=== PATIENT | female | born 1985 | race Caucasian/White ===

== ENCOUNTER 2017-12-12 10:02 | Inpatient (IN) ==
[2017-12-12] MEDS ORDERED: CITRIC ACID/SODIUM CITRATE 30ml PO ONE (10:05)
[2017-12-12] MEDS ORDERED: GENTAMICIN PB 120 MG/100 ML BAG IV ONE (10:05)
[2017-12-12] MEDS ORDERED: CLINDAMYCIN PB 600 MG/50 ML BAG IV ONE (10:05)
[2017-12-12] MEDS ORDERED: FAMOTIDINE PB 20 MG/50 ML BAG IV ONE (10:05)
[2017-12-12] MEDS ORDERED: NOZIN NASAL SWAB NAS ONE ×2 (10:05)
[2017-12-12] MEDS: LR 1,000 ML IV SCH ×3 (10:25→20:48)
[2017-12-12 10:34] VITALS: BMI 31.1
[2017-12-12] MEDS ORDERED: SCOPOLAMINE 1mg/3 days PATCH (Eq. 1.5 Patch) TD ONE (10:50)
--- NOTE | 2017-12-12 10:56 | Anesthesia Preoperative Report ---
Anesthesia Preoperative Record - Date and Time Date: 12/12/17 Preoperative Diagnosis: Repeat C Section Allergies/Adverse Reactions: Allergies Allergy/AdvReac Type Severity Reaction Status Date / Time cephalexin Allergy Mild Hives Verified 12/12/17 10:21 - Vital Signs Height and Weight: Height 1.57 m Weight 77.4 kg Body Mass Index 31.1 - Medications Inpatient Medications: Current Medications Lactated Ringer's (Lactated Ringers) 1,000 mls @ 150 mls/hr IV .Q6H40M COUNT INCLUDES THE [facility] Isopropyl Alcohol (Nozin Nasal Swab) 1 each TRINH 0600,1400,2200 COUNT INCLUDES THE [facility] Home Medications: Home Medications Medication Instructions Recorded Confirmed Type Aspirin [Adult Low Dose Aspirin EC] 81 mg PO DAILY 05/21/17 12/12/17 History Vits #93/Iron Fum/FA 1 each PO DAILY 05/21/17 12/12/17 History [ Formula Tablet] Acetaminophen [Tylenol] 1,000 mg PO Q5H 12/12/17 12/12/17 History CALCIUM CARBONATE Chewable [Tums] 1,000 mg PO CHEW DAILY 12/12/17 12/12/17 History - Medical History Neuro/Musculoskeletal: Reports: Other (RA) Other History: Reports: Now ([facility] 12-18-17) - Surgical History HEENT Surgeries: Reports: Nose Surgery, Tonsillectomy Reproductive Surgery/Treatment: Reports: Section DENIES: Hysterectomy, Tubal Ligation - Social History Smoking Status: Former smoker Substance Use Type: does not use Alcohol Intake Frequency: does not drink - Discussion Discussion: Discussed risks/options/alternatives of anesthesia and questions answered. Patient consents. Nursing pain assessment noted. Attestation Statement: Prior to the delivery of any anesthetic medication, I examined the patient, developed the plan, obtained the patient's consent and discussed the risk and benefits of the procedure with the patient/guardian.
[2017-12-12] MEDS ORDERED: NALOXONE 2 MG/2 ML INJECTION PFS IVP PRN ×2 (11:00→14:36)
--- NOTE | 2017-12-12 11:00 | Anesthesia Preoperative Report ---
Anesthesia Preoperative Record - Date and Time Date: 12/12/17 Preoperative Diagnosis: Repeat C Section previous c section Proposed Procedure: repeat csection NPO Since Date: 12/11/17 NPO Since Time: 23:00 Allergies/Adverse Reactions: Allergies Allergy/AdvReac Type Severity Reaction Status Date / Time cephalexin Allergy Mild Hives Verified 12/12/17 10:21 - Vital Signs Vital Signs: Temperature 99.5 F 12/12/17 10:35 Pulse Rate 72 12/12/17 10:35 Respiratory Rate 18 12/12/17 10:35 Blood Pressure 121/80 12/12/17 10:35 Pulse Oximetry 98 12/12/17 10:35 Height and Weight: Height 1.57 m Weight 77.4 kg Body Mass Index 31.1 - Medications Inpatient Medications: Current Medications Lactated Ringer's (Lactated Ringers) 1,000 mls @ 150 mls/hr IV .Q6H40M TAMMIE Isopropyl Alcohol (Nozin Nasal Swab) 1 each TRINH 0600,1400,2200 [facility] Home Medications: Home Medications Medication Instructions Recorded Confirmed Type Aspirin [Adult Low Dose Aspirin EC] 81 mg PO DAILY 05/21/17 12/12/17 History Vits #93/Iron Fum/FA 1 each PO DAILY 05/21/17 12/12/17 History [ Formula Tablet] Acetaminophen [Tylenol] 1,000 mg PO Q5H 12/12/17 12/12/17 History CALCIUM CARBONATE Chewable [Tums] 1,000 mg PO CHEW DAILY 12/12/17 12/12/17 History Is Patient on Beta Gonsalo?: No - Medical History Neuro/Musculoskeletal: Reports: Other (RA) Other History: Reports: Now ([facility] 12-18-17) - Surgical History HEENT Surgeries: Reports: Nose Surgery, Tonsillectomy Reproductive Surgery/Treatment: Reports: Section DENIES: Hysterectomy, Tubal Ligation Anesthesia Reactions: Nausea and Vomiting - Social History Smoking Status: Former smoker Substance Use Type: does not use Alcohol Intake Frequency: does not drink - Physical Exam Respiratory Exam: Present: lungs clear, bilateral breath sounds equal Cardiovascular Exam: Present: regular rate and rhythm, no murmur - Airway Assessment Mallampati Score: II TMD: 3 Fingerbreadths Neck Extension: good Overall Assessment: no airway concerns - ASA ASA Score: 2 - Plan Regional/Trunk Block: Spinal - Discussion Discussion: Discussed risks/options/alternatives of anesthesia and questions answered. Patient consents. Nursing pain assessment noted. Attestation Statement: Prior to the delivery of any anesthetic medication, I examined the patient, developed the plan, obtained the patient's consent and discussed the risk and benefits of the procedure with the patient/guardian. - Additional Information Seen by Anesthesia: Yes
[2017-12-12] MEDS ORDERED: FentaNYL 100 MCG/2 ML INJECTION ONE ×2 (11:48→12:38)
[2017-12-12] MEDS ORDERED: MORPHINE SULFATE PF 5mg/10ml INJ (Duramorph) ONE (11:48)
[2017-12-12] MEDS ORDERED: EPHEDRINE 50mg/ml INJECTION ONE (11:49)
[2017-12-12] MEDS ORDERED: SALINE FLUSH 10ml SYRINGE ONE (11:49)
[2017-12-12] MEDS ORDERED: BUPIVACAINE 0.75%/DEXTROSE 8.5% SPINAL 2 ML AMPULE IJ ONE (11:54)
[2017-12-12] MEDS ORDERED: LIDOCAINE 2% (100mg/5mL) 5ml PF SDV ONE (11:54)
[2017-12-12] MEDS ORDERED: OXYTOCIN BOLUS BAG 30 UNIT/500 ML ML IV SCH (12:00)
--- OUTSIDE RECORDS SUMMARY | 2017-12-12 12:09 | External Medical Summary | Continuity of Care Document ---
:1985 Author Organization [facility] Address [address] [place], [place] [id number] Phone Care Team Providers Name Role Phone Herbert Lee MD Unavailable Unavailable Allergies, Adverse Reactions, Alerts Substance Reaction Severity Status cephalexin Hives Unknown Active Medications Medication Instructions Dosage Effective Dates Status Comments (start - stop) [place] 5 mg-325 mg take 1 tablets PO - Active tablet every 6 hours as needed for pain melatonin 3 mg tablet - Active ORAL TABLET - Active Aspir-81 81 mg take 1 tablet by oral 81 MG - Active tablet,delayed route every day release Problems Condition Effective Dates (start - stop) Clinical Status Opioid dependence, uncomplicated - Supervision of other high risk - pregnancies, second trimester Placenta previa specified as w/o - hemor, second trimester 27 weeks gestation of - Suprvsn of w grand multiparity, first trimester Less than 8 weeks gestation of - Hypokalemia - Encntr screen for infections w sexl - mode of transmiss Encounter for screening for oth - infec/parastc diseases Encounter for suprvsn of normal - , first trimester Encounter for screening of - mother 10 weeks gestation of - Opioid dependence, uncomplicated - Matern care for oth or susp poor fetl - grth, 2nd tri, unsp 14 weeks gestation of - Opioid dependence, uncomplicated - Placenta previa specified as w/o - hemor, second trimester 19 weeks gestation of - Essential (primary) hypertension Supervision of other high risk - pregnancies, second trimester 23 weeks gestation of - Supervision of other high risk - pregnancies, third trimester Previous Low Transverse - 30 weeks gestation of - Previous Low Transverse - Placenta previa specified as w/o - hemorrhage, third trimester 30 weeks gestation of - Previous Low Transverse - Matern care for oth or susp poor fetl - grth, 2nd tri, unsp 19 weeks gestation of - 21 weeks gestation of - Personal history of dis of the nervous - sys and sense organs Hypertension - Active GERD Active Depression Active Kidney Stones Active Migraines Active Irregular Bleeding Active Procedures Procedure Date OB Visit No Charge Automated hemogram (CBC) Glucose test Venpnctr fngr/heel/ear stick routne Results Test Name Date and Time Measure Units Reference Range Abnormal Flag Comments Panel Description: CBC With Differential/Platelet WBC 09:47:00 8.9 x10E3/uL 3.4-10.8 RBC 09:47:00 3.72 x10E6/uL 3.77-5.28 L Hemoglobin 09:47:00 11.1 g/dL 11.1-15.9 Hematocrit 09:47:00 34.4 % 34.0-46.6 MCV 09:47:00 93 fL 79-97 MCH 09:47:00 29.8 pg 26.6-33.0 MCHC 09:47:00 32.3 g/dL 31.5-35.7 RDW 09:47:00 13.1 % 12.3-15.4 Platelets 09:47:00 182 x10E3/uL 150-379 Neutrophils 09:47:00 72 % Not Estab. Lymphs 09:47:00 14 % Not Estab. Monocytes 09:47:00 9 % Not Estab. Eos 09:47:00 4 % Not Estab. Basos 09:47:00 0 % Not Estab. Immature Cells 09:47:00 Neutrophils (Absolute) 09:47:00 6.4 x10E3/uL 1.4-7.0 Lymphs (Absolute) 09:47:00 1.3 x10E3/uL 0.7-3.1 Monocytes(Absolute) 09:47:00 0.8 x10E3/uL 0.1-0.9 Eos (Absolute) 09:47:00 0.3 x10E3/uL 0.0-0.4 Baso (Absolute) 09:47:00 0.0 x10E3/uL 0.0-0.2 Immature Granulocytes 09:47:00 1 % Not Estab. Immature Grans (Abs) 09:47:00 0.1 x10E3/uL 0.0-0.1 NRBC 09:47:00 Hematology Comments: 09:47:00 Panel Description: Glucose [Mass/volume] in Serum or Plasma --1 hour post 50 g glucose PO Gestational Diabetes Screen 09:47:00 127 mg/dL 65-135 Advance Directives Directive Yes / No Effective Date File Name Unknown Encounters Encounter Practice Location Reason(s) Diagnoses Date Provider Care Team Description For Visit Members [facility] Supervision of [place] Referring In Womens other high risk 6-201 Sonia. Provider: Health PA, pregnancies, 8 700 Sonialeigh Martinezb [address] [facility] Medical K, 700 1522, trimesterPrevious [facility] [place], Low Transverse Dr, [place] [address] [place], [id number] weeks 120, Bradley 120, [id number], gestation of Fredy Daniel, [place] JORDY, JORDY, tel: [phone]. , [place]. tel: tel: [phone] [facility] Previous Low Apr-2 [place] Referring In Womens Ultrasound Transverse 6-201 Sonia. Provider: Henry MARR, C-SectionPlacenta 8 700 Sonia [place] PO Box previa specified Medical , 700 1522, as w/o [facility], hemorrhage, third Dr, [facility] Dr [place], [id number] weeks 120, Bradley 120, [id number], gestation of Fredy Daniel, [place] JORDY, JORDY, tel:[phone]. , [place]. tel: tel: [phone] Debbie Boone Apr-0 [place] Referring In Womens dependence, 6- Sonia. Provider: Henry MARR, uncomplicatedSupe 8 700 Sonia [place] PO Box rvision of other Medical , 700 1522, high risk [facility] [place], pregnancies, Dr, [facility] Dr [place], second 120, Bradley 120, , trimesterPlacenta Fredy Daniel, [place] previa specified JORDY [place], tel: as w/o hemor, [phone]. second , [place]. tel: [email or web address] weeks tel: [phone] gestation of [id number] [facility] Supervision of Mar-0 [place] Referring In Womens other high risk 8-201 Sonia. Provider: Henry MARR, pregnancies, 8 700 Sonia [place] PO Box second Medical , 700 1522, [id number] weeks [facility] Rufino Connolly, gestation of Dr, [facility] Dr [place], 120, Bradley 120, [id number], Fredy Daniel, [place] JORDY [place], tel: [phone]. , [place]. tel: tel: [phone] Debbie Daniel 21 weeks Feb-2 Guill[place] Referring In Womens gestation of 3-201 [place]. 700 Provider: Henry MARR, pregnancyPersonal 8 Medical Sonia [place] PO Box history of dis of Center K, 700 1522, the nervous sys , [facility] [place], and sense organs 120, Center Dr [place], Fredy, Bradley 120, , [place], Daniel, [id number] [place], tel: , [place]. . tel: tel: [phone] [facility] Opioid Feb-0 [place] Referring In Womens dependence, - Sonia. Provider: Henry MARR, uncomplicatedPlac 8 700 Sonia [place] PO Box enta previa Medical K, 700 1522, specified as w/o [facility] tj Metz second Dr, [facility] Dr [place], [id number] weeks 120, Bradley 120, , gestation of Fredy Daniel, [place] JORDY [place], tel: [phone]. , [place]. tel: tel: [phone] [facility] Previous Low Feb-0 [place] Referring In Womens Ultrasound Transverse 5- Sonia. Provider: Henry MARR, C-SectionMatern 8 700 Sonia [place] PO Box care for oth or Medical K, 700 1522, susp poor fetl [facility] manuel Metz, 2nd Dr jethro, [facility] Dr [place], [id number] weeks 120, Bradley 120, , gestation of DanielFredy, [place] JORDY, JORDY, tel: [phone]. , [place]. tel: tel: [phone] [facility] Opioid Jean Marie-0 [place] Referring In Womens dependence, - Sonia. Provider: Henry MARR, uncomplicatedMate 8 700 Sonia [place] PO Box rn care for ot Medical K, 700 1522, or susp poor fetl [facility] manuel Metz, 2nd Dr jethro, [facility] Dr [place], unsp14 weeks 120, Bradley 120, , gestation of Fredy Daniel, [place] JORDY [place], tel: [phone]. , [place]. tel: tel: [phone] Debbie Daniel Dec-2 [place] In Womens 0-201 Sonia. Health [facility], 7 700 PO [address] Medical [address], [address] [place], [facility], 120, , [email or web address] [place], tel: [phone] , [place]. tel: [phone] Debbie Daniel HypokalemiaEncntr Dec-0 [place] Referring In Womens screen for 5-201 Sonia. Provider: Health PA, infections w sexl 7 700 Sonia [place] PO Box mode of Medical K, 700 1522, transmissEncounte [facility] [place], r for screening , [facility] Dr [place], for oth 120, Bradley 120, , infec/parastc Fredy Daniel, diseasesEncounter [place], [place], tel: for suprvsn of [phone] normal , , [place]. tel: first tel: [phone] [facility] [id number] r for screening of [id number] weeks gestation of [facility] Suprvsn of [place] Referring In Womens w grand 4-201 Sonia. Provider: Henry MARR, multiparity, 7 700 Sonia [place] PO Box first Medical K, 700 1522, [facility]Less [facility], than 8 weeks , [facility] Dr [place], gestation of 120, Bradley 120, [id number], Fredy [facility], [place], tel: [phone]. , [place]. tel: tel: [phone] Debbie Daniel Essential October- [place] In Womens (primary) 2-201 Sonia. Health [facility], hypertension 7 700 [address] Medical [address], [address] [place], [facility], 120, [id number], [facility], tel: [phone] , [place]. tel: [phone] Family History Family Member Diagnosis Age At Onset Maternal Grandmother Osteoporosis Paternal Grandfather Cardiovascular Disease Maternal Grandfather Kidney Disease Paternal Grandfather Diabetes Paternal Grandmother Breast Cancer Maternal Grandfather Thrombosis 70 Father Hypertension Maternal Grandmother Lung Disease Maternal Grandfather Thyroid Disorder Immunizations Vaccine Date Status Comments Influenza, injectable, completed Source: New Immunization Record quadrivalent, preservative free, 3 yrs or older Payers Payer name Insurance type Covered democrat ID Authorization(s) BCBS Out Of State [id number] [facility] - [id number] Medicaid Social History Type Description Quantity Date Captured Alcohol Use Details No Caffeine Use Details Unknown Tobacco Use Status Smoking Status Current some day smoker Vital Signs Date / Height Weight BMI Pulse Blood Temperature Respiratory Body Head BMI Time: Rate Pressure Rate Surface Circumference percentile Area 159.00 27.7 121/90 -2018 lbs 2 mm[Hg] 8:59 kg/m AM eter (2) 8 8:55 kg/m AM eter (2) Chief Complaint And Reason For Visit Unknown Chief Complaint And Reason For Visit Reason For Referral Reason For Referral Unknown Plan Of Care Date Type Action Status Goal Tobacco cessation counseling completed Appointment Norah Roberson BOOKED Appointment Norah Roberson [facility] R C/S BOOKED Future Order: Lab Order Pap Smear With HPV Reflex If Ordered ASCUS ([id number]), Collected on: Future Order: Radiology Order Ultrasound OB Follow-up ([id number]) Ordered Future Order: Radiology Order Complete OB Ultrasound > 14 Ordered Weeks ([id number]) Date Type Problem Goal Intervention Status Start Date Unknown. History Of Present Illness Encounter Date Complaint History Of Present Illness This patient has no known history of present illness Functional Status Encounter Date Functional Assessment Cognitive Assessment Unknown Medications Administered Medication Instructions Dosage Effective Dates (start - stop) Status Comments Drug Treatment Unknown Instructions Date Instruction Additional Information exercise indications for ultrasound influenza vaccine environmental / work hazards travel tobacco (ask, advise, assess, assist and arrange) use of any medications (including supplements, vitamins, herbs, OTC drugs) HIV and other routine tests risk factors identified by history anticipated course of care nutrition and weight gain counseling, special diet toxoplasmosis precautions (cats / raw meat) sexual activity smoking counseling domestic violence seat belt use childbirth classes / hospital facilities hospital registration genetic testing new ob handbook risks
--- OUTSIDE RECORDS SUMMARY | 2017-12-12 12:09 | External Medical Summary ---
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 Problem Depression with anxiety 300.4 Active Problem Lupus anticoagulant positive R76.0 Active Problem Duodenal ulcer K26.9 Active Problem Suppurative otitis media 382.4 Active Problem Irritability 799.22 Active Problem Rheumatoid arthritis M06.9 Active Problem Pharyngitis 462 Active Assessment Acute URI J06.9 Active Assessment Abnormal urine finding R82.90 Active Assessment Dysuria R30.0 Active Medications Medication Code Code Instructions Start End Status Dosage System Date Date Calcium NDC 77362-8 600 MG Orally 1 tablet 5038 Twice a day with meals Augmentin NDC 10746-9 875-125 MG May 17May 26, 1 tablet 188-14 Orally every 12 2015 2016 hrs Cyclobenzaprine HCl NDC 39311-4 10 MG Orally 1 tablet 057-30 Three times a day Omeprazole NDC 87086-0 20 MG Orally December 01, 2 capsules 150-01 Once a day 2015 Vitamin D NDC 72890-7 44475 UNIT 1 capsule (Ergocalciferol) 194-01 Orally once a day Aspirin NDC 56049-0 325 MG Orally 1 tablet 416-78 Once a day Meloxicam NDC 57520-5 7.5 MG Orally 1 tablet 234-01 Once a day Hydroxychloroquine NDC 12770-3 200 MG Orally 1 tablet Sulfate 774-01 twice a day with food or milk Pyridium NDC 07840-3 100 MG Orally May 25May 27, 1 tablet 190-24 Three times a 2015 2015 after meals day Levofloxacin NDC 39419-8 500 MG Orally May 25Jun 04, 1 tablet 292-53 Once a day 2015 2015 Procedures Procedure Coding System Code Date URINE CULTURECOLONY COUNT CPT-4 96433 May 25, 2016 KETOROLAC TROMETHAMINE INJ CPT-4 J1885 May 25, 2016 URINALYSIS NONAUTO WO SCOPE CPT-4 21878 May 25, 2016 OFFICE VISIT EST PATIENT LEVEL 4 CPT-4 03717 May 25, 2016 THERPROPHDIAG INJ, SCIM CPT-4 02203 May 25, 2016 Vital Signs Date/Time: May 25, 2016 BMI 24.91 Index Weight 145 lb 2 oz lbs Height 5 ft 4 in in Blood Pressure Diastolic 70 mm Hg Blood Pressure Systolic 110 mm Hg Cardiac Monitoring Heart Rate 98 /min Temperature 99.3 F Oximetry 99 % Results Name Result Date Reference Range Unit Abnormality Flag Urinalysis (UA) - IH ----Leukocytes large 20160525 ----pH 5.5 20160525 ----Specific Manning <=1.005 20160525 ----Ketones neg [id number] 0 - 0 ----Bilirubin neg 20160525 ----Nitrates neg 20160525 ----Color yellow 20160525 ----Protein neg [id number] 0 - 0 ----Character cloudy 20160525 ----Blood large 20160525 ----Urobilirubin 0.2 [id number] 0.2 - 1 ----Glucose neg [id number] 0 - 0 Urine Culture ----Urine Culture Source: Urine [id number] Collected: 05/25/16 16:50 Summary Purpose eClinicalWorks Submission
--- OUTSIDE RECORDS SUMMARY | 2017-12-12 12:09 | External Medical Summary | Continuity of Care Document ---
:1985 Author Organization [facility] Address [address] [place], [place] [id number] Phone Care Team Providers Name Role Phone Herbert Lee MD Unavailable Unavailable Allergies, Adverse Reactions, Alerts Substance Reaction Severity Status cephalexin Hives Unknown Active Medications Medication Instructions Dosage Effective Dates Status Comments (start - stop) [place] 5 mg-325 mg take 1 tablets PO - Active tablet every 6 hours as needed for pain melatonin 3 mg tablet - Active ORAL TABLET - Active Aspir-81 81 mg take 1 tablet by oral 81 MG - Active tablet,delayed route every day release Problems Condition Effective Dates (start - stop) Clinical Status Supervision of other high risk - pregnancies, second trimester 23 weeks gestation of - Suprvsn of w [...] weeks gestation of - Essential (primary) hypertension Previous Low Transverse - Matern care for oth or susp poor fetl - grth, 2nd tri, unsp 19 weeks gestation of - 21 weeks gestation of - Personal history of dis of the nervous - sys and sense organs Hypertension - Active GERD Active Depression Active Kidney Stones Active Migraines Active Irregular Bleeding Active Procedures Procedure Date OB Visit No Charge Results Test Name Date and Time Measure Units Reference Range Abnormal Flag Comments Unknown Advance Directives Directive Yes / No Effective Date File Name Unknown Encounters Encounter Practice Location Reason(s) Diagnoses Date Provider Care Team Description For Visit Members Debbie Daniel Supervision of [place] Referring In Womens other high risk 8-201 Sonia. Provider: Henry MARR, pregnancies, 8 700 Sonia [place] PO Box [facility], 700 1522, weeks [place] Rufino Connolly, gestation of Dr, [facility] Dr SPENCE, 120, [facility] 120, [id number], Fredy Daniel, JORDY SPENCE, tel: [phone]. , . tel: tel: [phone] Debbie Daniel 21 weeks Feb-2 Guillermo Referring In Womens gestation of 3-201 [place]. 700 Provider: Henry MARR, pregnancyPersonal 8 Medical Sonia [place] PO Box history of dis of [facility], 700 1522, the nervous sydarlene [place] [facility] Rufino Connolly, and sense organs 120, Center Dr SPENCE, [facility], [id number], JORDY, [place], [id number] [place], tel: , . [phone]. tel: tel: [phone] Debbie Daniel Opioid Feb-0 [place] Referring In Womens dependence, 5-201 Sonia. Provider: Henry MARR, uncomplicatedPlac 8 700 Sonia [place] PO Box enta previa [facility], 700 1522, specified as w/o [place] tj Metz second Dr [facility] Dr SPENCE, [id number] weeks 120, [place] 120, [id number], gestation of Fredy Daniel, [place] JORDY, JORDY, tel: [phone]. , [place]. tel: tel: [phone] Associates [facility] Previous Low Feb-0 [place] Referring In Womens Ultrasound Transverse 5-201 Sonia. Provider: Henry MARR C-SectionMatern 8 700 Sonia [place] PO Box care for oth or Medical K, 700 1522, susp [facility]l [facility], 2nd tri, , [facility] Dr SPENCE, unsp19 weeks 120, Bradley 120, , gestation of Fredy Daniel, [place] JORDY, JORDY, tel: [phone]. , [place]. tel: tel: [phone] Associates Fredy Opioid Jean Marie-0 [place] Referring In Womens dependence, 4-201 Sonia. Provider: Henry MARR, uncomplicatedMate 8 700 Sonia [place] PO Box rn care for oth Medical K, 700 1522, or susp poor fetl [facility], 2nd tri, , [facility] Dr SPENCE, unsp14 weeks 120, Bradley 120, [id number], gestation of Fredy Daniel, [place] JORDY SPENCE, tel: [phone]. , [place]. tel: tel: [phone] Debbie Daniel Dec-2 [place] In Womens 0-201 Sonia. Henry MARR, 7 700 PO [address] Medical [address], [address] Mohsen, [facility] JORDY, 120, [id number], [place], [place], tel: [phone] , [place]. tel: [phone] Debbie Daniel HypokalemiaEncntr Dec-0 [place] Referring In Womens screen for 5-201 Sonia. Provider: Henry MARR, infections w sexl 7 700 Sonia [place] PO Box mode of Medical K, 700 1522, transmissEncounte [facility] armond Connolly for screening , [facility] Dr SPENCE, for oth 120, [place] 120, [id number], infec/parastc Fredy Daniel, diseasesEncounter JORDY SPENCE, tel: for suprvsn of [phone]. normal , , [place]. tel: first tel: [phone] trimesterEncounte [phone] r for screening of esnmtz15 weeks gestation of [facility] Fredy Suprvsn of [place] Referring In Womens w grand 4-201 Sonia. Provider: Health PA, multiparity, 7 700 Sonia [place] PO Box first Medical K, 700 1522, trimesterLess Center Rufino Connolly, than 8 weeks , [facility] Dr SPENCE, gestation of 120, [place] 120, [id number], Fredy Daniel, JORDY SPENCE, tel: [phone]. , [place]. tel: tel: [phone] [facility] Fredy Essential [place] In Womens (primary) 2-201 Sonia. Health PA, hypertension 7 700 PO [address] Medical [address], Thur[place] Mohsen, [place], 120, , Daniel, JORDY, tel: [phone] , [place]. tel: [phone] Family History Family Member Diagnosis Age At [...] older Payers Payer name Insurance type Covered constitution party ID Authorization(s) BCBS Out Of State [id number] [facility] - [id number] Medicaid Social History Type Description Quantity Date Captured Alcohol Use Details No Caffeine Use Details Unknown Tobacco Use Status Smoking Status Current some day smoker Vital Signs Date / Height Weight BMI Pulse Blood Temperature Respiratory Body Head BMI Time: Rate Pressure Rate Surface Circumference percentile Area 153.00 26.6 110/75 -2018 lbs 8 mm[Hg] 11:37 kg/m AM eter (2) Chief Complaint And Reason For Visit Unknown Chief Complaint And Reason For Visit Reason For Referral Reason For Referral Unknown Plan Of Care Date Type Action Status Goal Tobacco cessation counseling completed Appointment Norah Roberson BOOKED Future Order: Lab Order Pap Smear With HPV Reflex If Ordered ASCUS (WPMPap1), Collected on: Future Order: Radiology Order Complete OB Ultrasound > 14 Ordered Weeks ([id number]) Date Type Problem Goal Intervention Status Start [...]
--- OUTSIDE RECORDS SUMMARY | 2017-12-12 12:10 | External Medical Summary | Continuity of Care Document ---
:1987 Author Organization [email or web address] Address [address] [place], [place] [id number] Phone Care Team Providers Name Role Phone Herbert Lee MD Unavailable Unavailable Allergies, Adverse Reactions, Alerts Substance Reaction Severity Status cephalexin Hives Unknown Active Medications Medication Instructions Dosage Effective Dates Status Comments (start - stop) melatonin 3 mg tablet - Active ORAL TABLET - Active Aspir-81 81 mg take 1 tablet by oral 81 MG - Active tablet,delayed route every day release Problems Condition Effective Dates (start - stop) Clinical Status Previous Low Transverse - Placenta previa specified as w/o - hemorrhage, third trimester 30 weeks gestation of - Suprvsn of w [...] gestation of - Opioid dependence, uncomplicated - Supervision of other high risk - pregnancies, second trimester Placenta previa specified as w/o - hemor, second trimester 27 weeks gestation of - Opioid dependence, uncomplicated [...] tri, unsp 19 weeks gestation of - Previous Low Transverse - 32 weeks gestation of - 21 weeks gestation of - Personal history of dis of the nervous - sys and sense organs Hypertension - Active GERD Active Depression Active Kidney Stones Active Migraines Active Irregular Bleeding Active Procedures Procedure Date Ultrasnd preg uterus, flwup/repeat Results Test Name Date and Time Measure Units Reference Range Abnormal Flag Comments Unknown Advance Directives Directive Yes / No Effective Date File Name Unknown Encounters Encounter Practice Location Reason(s) Diagnoses Date Provider Care Team Description For Visit Members Debbie Daniel Previous Low [place] Referring In Womens Transverse 0-201 Sonia. Provider: Henry MARR, [id number] weeks 8 700 Sonia [place] PO Box gestation of Medical K, 700 1522, Center R[address], [facility] Center Dr SPENCE, 120, [facility] 120, [id number], Fredy Daniel, [place] JORDY SPENCE, tel:[phone]. [phone] , [place]. tel: tel: [phone] [facility] Supervision of Sep-2 [place] Referring In Womens other high risk 6-201 Sonia. Provider: Henry MARR, pregnancies, 8 700 Sonia [place] PO Box third Medical K, 700 1522, trimesterPrevious [place] [facility] [place], Low Transverse , [facility] Dr SPENCE, [id number] weeks 120, Bradley 120, , gestation of Fredy Daniel, [place] JORDY, JORDY, tel: [phone]. , [place]. tel: tel: [phone] Debbie Daniel Previous Low Apr-2 [place] Referring In Womens Ultrasound Transverse 6-201 Sonia. Provider: Henry MARR, C-SectionPlacenta 8 700 Sonia [place] PO Box previa specified Medical , 700 1522, as w/o [facility] [place], hemorrhage, third Dr, [facility] Dr SPENCE, [id number] weeks 120, [place] 120, , gestation of Fredy Daniel, [place] JORDY, JORDY, tel: [phone]. , [place]. tel: tel: [phone] Debbie Daniel Opioid Apr-0 [place] Referring In Womens dependence, 6-201 Sonia. Provider: Henry MARR, uncomplicatedSupe 8 700 Sonia [place] PO Box rvision of other Medical , 700 1522, high risk [facility] [place], pregnancies, Dr, [facility] Dr SPENCE, second 120, Bradley 120, , trimesterPlacenta Fredy Daniel, [place] previa specified JORDY SPENCE, tel: as w/o hemor, [phone]. second , [place]. tel: weeks tel: [phone] gestation of [id number] Debbie Daniel Supervision of Mar-0 [place] Referring In Womens other high risk 8-201 Sonia. Provider: Henry MARR, pregnancies, 8 700 Sonia [place] PO Box second Medical , 700 1522, weeks [place] Rufino Connolly, gestation of Dr, [facility] Dr SPENCE, 120, [place] 120, , Fredy Daniel, [place] JORDY SPENCE, tel: [phone]. , [place]. tel: tel: [phone] Daniel 21 weeks Feb-2 Guillermo Referring In Womens gestation of 3-201 [place]. 700 Provider: Henry MARR, pregnancyPersonal 8 Medical Sonia [place] PO Box history of dis of Center K, 700 1522, the nervous sys , [facility] [place], and sense organs 120, Center Dr SPENCE, Fredy, [place] 120, [id number], [place], [place] [id number] [place], tel: , [place]. . tel: tel: [phone] [facility] Opioid Feb-0 [place] Referring In Womens dependence, 5-201 Sonia. Provider: Henry MARR, uncomplicatedPlac 8 700 Sonia [place] PO Box enta previa Medical K, 700 1522, specified as w/o [place] tj Metz, zackary [place], [facility] Dr SPENCE, [id number] weeks 120, Bradley 120, , gestation of Fredy Daniel, [place] JORDY, JORDY, tel:[phone]. , [place]. tel: tel: [phone] [facility]y Previous Low Feb-0 [place] Referring In Womens Ultrasound Transverse 5-201 Sonia. Provider: Henry MARR, C-SectionMatern 8 700 Sonia [place] PO Box care for oth or Medical K, 700 1522, susp poor fetl [place] manuel Metz, 2nd Dr jethro, [facility] Dr SPENCE, unsp19 weeks 120, Bradley 120, , gestation of Fredy Daniel, [place] JORDY, JORDY, tel:[phone]. , [place]. tel: tel: [phone] Debbie Daniel Opioid Jean Marie-0 [place] Referring In Womens dependence, 4-201 Sonia. Provider: Henry MARR, uncomplicatedMate 8 700 Sonia [place] PO Box rn care for oth Medical K, 700 1522, or susp poor fetl [place] manuel Metz, 2nd tri, , [facility] Dr SPENCE, unsp14 weeks 120, [place] 120, [id number], gestation of Fredy Daniel, [place] JORDY SPENCE, tel:[phone]. , [place]. tel: tel: [phone] Associates Fredy HypokalemiaEncntr May- [place] Referring In Womens screen for 5-201 Sonia. Provider: Health [facility], infections w sexl 7 700 Sonia [place] PO Box mode of Medical K, 700 1522, transmissEncounte [facility] [place], r for screening , [facility] Dr SPENCE, for oth 120, [place] 120, [id number], infec/parastc Fredy Daniel, diseasesEncounter JORDY, JORDY, tel: for suprvsn of [phone]. [phone] normal , , [place]. tel: first tel: [phone] [facility] [phone] r for screening of [id number] weeks gestation of Associates Fredy Suprvsn of [place] Referring In Womens w grand 4-201 Sonia. Provider: Henry MARR, multiparity, 7 700 Sonia [place] PO Box first Medical K, 700 1522, [facility]Less [facility], than 8 weeks , [facility] Dr SPENCE, gestation of 120, Bradley 120, [id number], Fredy [place], JORDY, JORDY, tel: [phone]. , [place]. tel: tel: [phone] Debbie Daniel Essential [place] In Womens (primary) 2-201 Sonia. Henry MARR, hypertension 7 700 PO Box Medical [address], [place] Dr Mohsen, [facility] [place], 120, [id number], Fred[place], [place], tel: [phone] , [place]. tel: [phone] Family History Family Member Diagnosis Age At Onset Maternal Grandmother Osteoporosis Paternal Grandfather Cardiovascular Disease Maternal Grandfather Kidney Disease Paternal Grandfather Diabetes Paternal Grandmother Breast Cancer Maternal Grandfather Thrombosis 70 Father Hypertension Maternal Grandmother Lung Disease Maternal Grandfather Thyroid Disorder Immunizations Vaccine Date Status Comments Tdap completed Source: New Immunization Record Influenza, injectable, completed Source: New Immunization Record quadrivalent, preservative free, 3 yrs or older Payers Payer name Insurance type Covered libertarian ID Authorization(s) BCBS Out Of State [id number] [facility] - [id number] Medicaid BCBS Out Of State [id number] Social History Type Description Quantity Date Captured Unknown Vital Signs Date / Height Weight BMI Pulse Blood Temperature Respiratory Body Head BMI Time: Rate Pressure Rate Surface Circumference percentile Area Unknown Chief Complaint And Reason For Visit Unknown Chief Complaint And Reason For Visit Reason For Referral Reason For Referral Unknown Plan Of Care Date Type Action Status Goal Tobacco cessation counseling completed Appointment Norah Roberson BOOKED Appointment Norah Roberson [facility] [place]/S [place]OOKED Future Order: Radiology Order Ultrasound OB Follow-up ([id number]) Ordered Future Order: Lab Order Pap Smear With HPV Reflex If Ordered ASCUS ([id number]), Collected on: Future Order: Radiology Order Complete OB Ultrasound > 14 Ordered Weeks ([id number]) Date Type Problem Goal Intervention Status Start [...]
--- OUTSIDE RECORDS SUMMARY | 2017-12-12 12:10 | External Medical Summary ---
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 Problem Depression with anxiety 300.4 Active Problem Lupus anticoagulant positive R76.0 Active Problem Duodenal ulcer K26.9 Active Problem Suppurative otitis media 382.4 Active Problem Irritability 799.22 Active Problem Rheumatoid arthritis M06.9 Active Problem Pharyngitis 462 Active Medications Medication Code Code Instructions Start End Status Dosage System Date Date Meloxicam NDC 98728-9 15 MG Orally 1 tablet 299-01 Once a day Hydroxychloroquine NDC 44494-9 200 MG Orally 1 tablet Sulfate 774-01 twice a day with food or milk BuPROPion HCl (SR) NDC 10074-4 150 MG Orally December 01, 1 tablet 415-01 Twice a day 2015 Aspirin NDC 37682-2 325 MG Orally 1 tablet 416-78 Once a day Vitamin D NDC 73916-3 14399 UNIT 1 capsule (Ergocalciferol) 194-01 Orally once a day Hydrocodone-Acetamino NDC 86678-0 5-325 MG Orally August 1 tablet as phen 112-20 every 6 hrs 2015 needed Omeprazole NDC 37795-7 20 MG Orally December 01, 2 capsules 150-01 Once a day 2015 Cyclobenzaprine HCl NDC 19114-2 10 MG Orally 1 tablet 057-30 Three times a day Calcium NDC 21177-1 600 MG Orally 1 tablet 5038 Twice a day with meals Verapamil HCl NDC 46259-4 120 MG Orally 1 tablet 772-01 once a day Procedures Procedure Coding System Code Date OFFICE VISIT EST PATIENT LEVEL 2 CPT-4 39717 December 24, 2015 REMOVE NEXPLANON CPT-4 05154 December 24, 2015 Vital Signs Date/Time: December 24, 2015 BMI 23.69 Index Weight 138.0 lbs Height 64 in Blood Pressure Diastolic 80 mm Hg Blood Pressure Systolic 110 mm Hg Cardiac Monitoring Heart Rate 72 /min Temperature 98.8 F Respiratory Rate 18 /min Results No Known Results Summary Purpose eClinicalWorks Submission
--- OUTSIDE RECORDS SUMMARY | 2017-12-12 12:10 | External Medical Summary | Continuity of Care Document ---
:1987 Author Organization [facility] Address [address] [place], [place] [phone] Phone Care Team Providers Name Role Phone [...] Transverse - 30 weeks gestation of - Suprvsn of [...] second trimester 23 weeks gestation of - Previous Low Transverse [...] For Visit Members Debbie Daniel Previous Low October- [place] Referring In Womens Transverse 0-201 Sonia. Provider: Henry MARR, C-Plztcpu01 weeks 8 700 Sonia [place] PO Box gestation of Medical K, 700 1522, Center [facility] Dr Mohsen, [facility] Center Dr SPENCE, 120, [place] 120, [id number], Fredy Daniel, JORDY, JORDY, tel:[phone]. [phone] , [place]. tel: tel: [phone] Associates Fr[facility]y Supervision of Sep-2 [place] Referring In Womens other high risk 6-201 Sonia. Provider: Henry MARR, pregnancies, 8 700 Sonia [place] PO Box third Medical K, 700 1522, trimesterPrevious Center Jordan Metz Transverse , [facility] Dr SPENCE, C-[id number] weeks 120, Bradley 120, [id number], gestation of Fredy Dainel, [place] JORDY, JORDY, tel: [phone]. , [place]. tel: tel: [phone] Associates Fredy Previous Low Apr-2 [place] Referring In Womens Ultrasound Transverse 6-201 Sonia. Provider: Henry MARR, C-SectionPlacenta 8 700 Sonia [place] PO Box previa specified Medical , 700 1522, [facility], [facility], third Dr, [facility] Dr SPENCE, [id number] weeks 120, Bradley 120, , gestation of Fredy Daniel, [place] JORDY, JORDY, tel:[phone]. , [place]. tel: tel: [phone] Debbie Daniel Opioid Apr-0 [place] Referring In Womens dependence, 6-201 Sonia. Provider: Henry MARR, uncomplicatedSupe 8 700 Sonia [place] PO Box rvision of other Medical , 700 1522, high risk [facility] [place], pregnancies, Dr, [facility] Dr SPENCE, second 120, Bradley 120, , trimesterPlacenta Fredy Daniel, [place] previa specified JORDY SPENCE, tel: as w/o hemor, [phone]. second , [place]. tel: weeks tel: [phone] gestation of [id number] Associates Fredy Supervision of Mar-0 [place] Referring In Womens other high risk 8-201 Sonia. Provider: Henry MARR, pregnancies, 8 700 Sonia [place] PO Box second Medical , 700 1522, [id number] weeks [place] Rufino Connolly, gestation of , [facility] Dr SPENCE, 120, [place] 120, [id number], Fredy Daniel, [place] JORDY SPENCE, tel: [phone]. , [place]. tel: tel: [phone] Daniel 21 weeks Feb-2 Guill[place] Referring In Womens gestation of 3-201 [place]. 700 Provider: Henry MARR, pregnancyPersonal 8 Medical Sonia [place] PO Box history of dis of Center K, 700 1522, the nervous sys , [facility] [place], and sense organs 120, Center Dr SPENCE, Fredy, [place] 120, , [place], [place], [id number] [place], tel: , [place]. [phone]. tel: tel: [phone] Associates [facility]y Opioid Feb-0 [place] Referring In Womens dependence, 5-201 Sonia. Provider: Henry MARR, uncomplicatedPlac 8 700 Sonia [place] PO Box enta previa Medical K, 700 1522, specified as w/o [place] tj Metz, zackary [place], [facility] Dr SPENCE, [id number] weeks 120, Bradley 120, , gestation of Fredy Daniel, [place] JORDY, JORDY, tel:[phone]. , [place]. tel: tel: [phone] Associates Fredy Previous Low Feb-0 [place] Referring In Womens Ultrasound Transverse 5- Sonia. Provider: Henry MARR, C-SectionMatern 8 700 Sonia [place] PO Box care for oth or Medical K, 700 1522, susp poor fetl [place] manuel Metz, 2nd Dr jethro, [facility] Dr SPENCE, unsp19 weeks 120, Bradley 120, , gestation of FredyFredy, [place] JORDY, JORDY, tel:[phone]. , [place]. tel: tel: [phone] Associates [facility] Opioid Jean Marie-0 [place] Referring In Womens dependence, -201 Sonia. Provider: Henry MARR, uncomplicatedMate 8 700 Sonia [place] PO Box rn care for oth Medical K, 700 1522, or susp poor fetl [place] manuel Metz, 2nd triDr, [facility] Dr SPENCE, unsp14 weeks 120, Bradley 120, , gestation of Fredy Daniel, [place] JORDY, JORDY, tel:[phone]. , [place]. tel: tel: [phone] Debbie Daniel HypokalemiaEncntr [place] Referring In Womens screen for 5-201 Sonia. Provider: [facility], infections w sexl 7 700 Sonia [place] PO Box mode of Medical K, 700 1522, transmissEncounte [facility] [place], r for screening , [facility] Dr SPENCE, for oth 120, [place] 120, [id number], infec/parastc Fredy Daniel, diseasesEncounter JORDY, JORDY, tel: for suprvsn of [phone]. normal , , [place]. tel: first tel: [phone] [facility] [phone] r for screening of weeks gestation of Debbie Daniel Suprvsn of [place] Referring In Womens w grand 4-201 Sonia. Provider: Henry MARR, multiparity, 7 700 Sonia [place] PO Box first Medical , 700 1522, [facility]Less [facility], than 8 weeks , [facility] Dr SPENCE, gestation of 120, Bradley 120, [id number], Fredy Daniel, JORDY, [place], tel: [phone]. , [place]. tel: tel: [phone] Debbie Daniel Essential [place] In Womens (primary) 2-201 Sonia. Henry MARR, hypertension 7 700 PO Box Medical [address], [place], , [facility], 120, [id number], [facility] JORDY, tel: [phone] , [place]. tel: [phone] Family History Family Member Diagnosis Age At [...] Covered democrat ID Authorization(s) BCBS Out Of [facility] [id number] [facility] [id number] Medicaid BCBS Out Of [facility] [id number] Social History Type Description Quantity Date Captured Alcohol Use Details No Caffeine Use Details Unknown Tobacco Use Status Smoking Status Current some day smoker Vital Signs Date / Height Weight BMI Pulse Blood Temperature Respiratory Body Head BMI Time: Rate Pressure Rate Surface Circumference percentile Area 27.7 2 10:14 kg/m AM eter (2) 162.10 28.2 113/ lbs 6 mm[Hg] 10:27 kg/m AM eter (2) Chief Complaint And Reason For Visit Unknown Chief Complaint And Reason For Visit Reason For Referral Reason For Referral Unknown Plan Of Care Date Type Action Status Goal Tobacco cessation counseling completed Appointment Norah Roberson BOOKED Appointment Norah Roberson [facility] R C/S BOOKED Future Order: Lab Order Pap Smear With HPV Reflex If Ordered ASCUS (WPMPap1), Collected on: Future Order: Radiology Order Ultrasound OB Follow-up ([id number]) Ordered Future Order: Radiology Order Complete OB Ultrasound > 14 Ordered Weeks ([id number]) Date Type Problem Goal Intervention Status Start [...]
--- OUTSIDE RECORDS SUMMARY | 2017-12-12 12:10 | External Medical Summary ---
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 Problem Depression with anxiety 300.4 Active Problem Lupus anticoagulant positive R76.0 Active Problem Duodenal ulcer K26.9 Active Problem Suppurative otitis media 382.4 Active Problem Irritability 799.22 Active Problem Rheumatoid arthritis M06.9 Active Problem Pharyngitis 462 Active Medications Medication Code System Code Instructions Start End Date Status Dosage Date Azithromycin [facility] [address]03-261 250 MG Orally May 19, May 24, 2 tablets 6-09 Once a day 2015 2015 on the first day, then 1 tablet daily for 4 days Azathioprine [facility] 14[address]-015 50 MG Orally May 19September 16, 1 tablet 4-25 once a day 2015 2016 Results No Known Results Summary Purpose [employer] Submission
[2017-12-12] MEDS ORDERED: ONDANSETRON 4 MG/2 ML INJECTION ONE (12:11)
[2017-12-12] MEDS ORDERED: CALCIUM CARBONATE Chewable 500mg TABLET PO PRN (12:54)
[2017-12-12] MEDS ORDERED: ACETAMINOPHEN 500 MG TABLET PO PRN (12:54)
[2017-12-12] MEDS ORDERED: DiphenhydrAMINE 25 MG CAPSULE PO PRN (12:54)
[2017-12-12] MEDS ORDERED: HYDROCORTISONE 2.5% CREAM 30gm RECTALLY PRN (12:54)
[2017-12-12] MEDS ORDERED: SIMETHICONE 80 MG CHEWABLE TABLET PO PRN (12:54)
[2017-12-12] MEDS ORDERED: OXYTOCIN DRIP 30 UNIT/500 ML ML IV SCH (13:00)
--- NOTE | 2017-12-12 13:00 | Operative Note ---
Operative Note - Date of Operation Date of Operation: 12/12/17 - General : 2 Para: 1 Estimated or Known Gestational Age (weeks): 39 Estimated or Known Gestational Age (days): 0 - Preoperative Diagnosis Previous Section - Postoperative Diagnosis previous section - Procedure Repeat, Low-transverse - Surgeon Surgeon: Sonia Grossman MD - Weapons And Tactics Instructor OB Weapons And Tactics Instructor: Amadou Fisher MD - Anesthesia Anesthesia Provider: Clement Barreto CRNA Anesthesia Type: Spinal - Complications Complications: None - Estimated Blood Loss Estimated Blood Loss:: 700 - Findings Findings: viable male, clear fluids, normal uterus, normal adenexa, OT - APGARS : 8,8 - Shushan Weight Weight (grams): 3616 - Shushan Name Name: Nolberto - Description of Procedure Description of Procedure: The patient was taken to the operating room where anesthesia was obtained. She was placed in the dorsal supine position with a leftward tilt. A Posada catheter was placed. She was prepared and draped in the normal sterile fashion. A Pfannenstiel incision was made through her previous incision and carried down to the fascia. The fascia was incised in the midline with the scalpel and then extended laterally with the Anderson scissors. The fascia was elevated, and the underlying rectus muscles were dissected off. The peritoneum was entered sharply with Metzenbaums. This was extended superiorly and inferiorly with good visualization of the bladder. The bladder blade was inserted. A bladder flap was created sharply. The lower uterine segment was incised in a transverse fashion [id number] with the scalpel and bluntly extended. The membranes were ruptured. The s head was delivered atraumatically. The nose and mouth were suctioned. The cord was clamped and cut. The infant was handed to Dr. Diaz who was asked to attend the delivery due to [place] use during pregnanacy. The placenta delivered spontaneously. The uterus was exteriorized and cleared of all clots and debris. The uterus was closed with running, locked 0-monocryl. Hemostasis was obtained on the serosal edges with cautery. The bladder flap was closed with 3-0 vicryl. The uterus was returned to the abdomen. The gutters were cleared of all clots and debris. The uterine incision was inspected one final time and still noted to be hemostatic. The peritoneum was closed with running 2-0 vicryl. Hemostasis was obtained in the rectus muscles with the cautery. The fascia was closed with running 0-vicryl. Hemostasis was obtained in the subcutaneous tissue with the cautery. The skin was closed with 4-0 vicryl in a subcuticular manner. Steri- strips were placed. Sponge, sharp, and instrument counts were correct. The patient tolerated the procedure well and was taken to the recovery room in good condition.
[2017-12-12] MEDS: D5LR 1,000 ML IV SCH (13:10)
--- NOTE | 2017-12-12 13:14 | Anesthesia Postoperative Note ---
- Date and Time Date: 12/12/17 Time: 13:15 - Status Patient Participated in Evaluation: Patient Participated in Person Vital Signs: Temperature 99.5 F 12/12/17 10:35 Pulse Rate 72 12/12/17 10:35 Respiratory Rate 18 12/12/17 10:35 Blood Pressure 121/80 12/12/17 10:35 Pulse Oximetry 98 12/12/17 10:35 Respiratory Function: Airway Patent Cardiovascular Function: Regular Pulse Mental Status: Alert and Oriented Pain Intensity: 0 Hydration: IV Infusing Complications During Recover: None Apparent - Follow-Up Instructions Instructions: Per Surgeon
[2017-12-12] MEDS ORDERED: DiphenhydrAMINE 50 MG/ML INJECTION IVP PRN (14:36)
[2017-12-12] MEDS ORDERED: ONDANSETRON 4 MG/2 ML INJECTION IVP PRN (14:36)
[2017-12-12] MEDS ORDERED: METOCLOPRAMIDE 10mg/2ml INJECTION IVP PRN (14:36)
[2017-12-12] MEDS ORDERED: NALBUPHINE 10 MG/ML INJECTION IVP PRN (14:36)
[2017-12-12] MEDS: SIMETHICONE 80 MG CHEWABLE TABLET PO SCH ×2 (15:23→21:16)
[2017-12-12] MEDS: IBUPROFEN 800 MG TABLET PO PRN (16:47)
[2017-12-12] MEDS: Oxycodone/Acetaminophen 5/325 1 TAB PO PRN ×2 (16:50→21:16)
[2017-12-12] MEDS: NOZIN NASAL SWAB NAS SCH (18:00)
[2017-12-13] MEDS: SIMETHICONE 80 MG CHEWABLE TABLET PO SCH ×5 (01:12→23:52)
[2017-12-13] MEDS: IBUPROFEN 800 MG TABLET PO PRN ×3 (01:12→17:53)
[2017-12-13] MEDS: NOZIN NASAL SWAB NAS SCH ×4 (01:27→23:50)
[2017-12-13] MEDS: D5LR 1,000 ML IV SCH (01:28)
[2017-12-13] MEDS: LR 1,000 ML IV SCH (01:29)
[2017-12-13] MEDS: Oxycodone/Acetaminophen 5/325 1 TAB PO PRN ×6 (01:55→23:44)
--- NOTE | 2017-12-13 08:21 | OB/GYN Progress Note ---
OB-PP Progress Note - General PPD1 Maternal Group B Strep: Negative Maternal blood type: O+ Maternal Rubella Status: Immune - Subjective Date: 12/13/17 Lochia: Minimal Pain: controlled Voiding: voiding Nausea or Vomiting Present: No Subjective Comments: Baby went to [facility] yesterday for resp distress. - Objective Vital Signs: Last Vital Signs Temp 98.0 F 12/13/17 05:20 Pulse 88 12/13/17 05:20 Resp 16 12/13/17 05:20 BP 97/69 12/13/17 05:20 Pulse Ox 99 12/13/17 05:20 General: alert and oriented Abdomen: fundus firm, non-tender Incision: normal, no erythema, dry, intact Extremities: non-tender Laboratory: Laboratory Results - last 24 hr 12/12/17 12/12/17 12/12/17 10:27 10:27 17:59 WBC 9.8 12.3 H RBC 3.91 L 3.32 L Hgb 11.1 L 9.3 L D Hct 33.1 L 28.1 L D MCV 84.7 84.6 MCH 28.4 28.0 MCHC 33.5 33.1 RDW Std Deviation 40.9 39.6 Plt Count 189 162 MPV 10.6 9.9 Immature Gran % (Auto) 0.8 H Neut % (Auto) 72.7 H Lymph % (Auto) 17.4 L [place] % (Auto) 7.3 Eos % (Auto) 1.6 Baso % (Auto) 0.2 Neut # (Auto) 7.2 Lymph # (Auto) 1.7 [place] # (Auto) 0.7 Eos # (Auto) 0.2 Baso # (Auto) 0.0 Abs Immat Gran (auto) 0.08 H Blood Type O Positive Antibody Screen Negative - Assessment Assessment: Repeat C/S, Anemia - Plan Plan: routine care, iron
[2017-12-13] MEDS: IRON POLYSACCHARIDE COMPLEX 150 MG CAPSULE PO SCH (09:14)
[2017-12-13] MEDS: DOCUSATE CALCIUM 240 MG CAPSULE PO SCH (09:14)
[2017-12-14] MEDS: Oxycodone/Acetaminophen 5/325 1 TAB PO PRN ×5 (03:56→21:17)
[2017-12-14] MEDS: IBUPROFEN 800 MG TABLET PO PRN ×3 (05:54→23:12)
--- NOTE | 2017-12-14 08:09 | OB/GYN Progress Note ---
OB-PP Progress Note - General POD:: POD2 Maternal Group B Strep: Negative Maternal blood type: O+ Maternal Rubella Status: Immune - Subjective Date: 12/14/17 Lochia: Moderate Pain: controlled Voiding: voiding Nausea or Vomiting Present: No - Objective Vital Signs: Last Vital Signs Temp 98 F 12/14/17 04:24 Pulse 65 12/14/17 04:24 Resp 16 12/14/17 04:24 BP 120/74 12/14/17 04:24 Pulse Ox 98 12/14/17 04:24 Urine Output: good General: alert and oriented Extremities: non-tender - Assessment Assessment: Repeat C/S (Baby in [facility]. Did not check incision. ) - Plan Plan: routine care (mom in [facility] with baby. reports that )
[2017-12-14] MEDS: SIMETHICONE 80 MG CHEWABLE TABLET PO SCH ×3 (11:04→23:12)
[2017-12-14] MEDS: DOCUSATE CALCIUM 240 MG CAPSULE PO SCH (11:05)
[2017-12-14] MEDS: IRON POLYSACCHARIDE COMPLEX 150 MG CAPSULE PO SCH (11:05)
[2017-12-14] MEDS: NOZIN NASAL SWAB NAS SCH ×3 (13:20→21:17)
[2017-12-14 16:34] VITALS: O2SAT 99
[2017-12-15] MEDS: Oxycodone/Acetaminophen 5/325 1 TAB PO PRN (07:39)
--- NOTE | 2017-12-15 08:10 | OB/GYN Progress Note ---
OB-PP Progress Note - General POD:: POD3 Maternal Group B Strep: Negative Maternal Rubella Status: Immune - Subjective Date: 12/15/17 Lochia: Moderate Pain: controlled Voiding: voiding Nausea or Vomiting Present: No - Objective Vital Signs: Last Vital Signs Temp 98.3 F 12/14/17 22:57 Pulse 62 12/14/17 22:57 Resp 14 12/14/17 22:57 BP 114/78 12/14/17 22:57 Pulse Ox 99 12/14/17 16:10 Urine Output: good General: alert and oriented Abdomen: fundus firm Incision: clean, dry, intact Extremities: non-tender - Assessment Assessment: Repeat C/S - Plan Plan: discharge home
[2017-12-15 08:19] VITALS: BP 127/86; PULSE 86; RESP 16; TEMP 98.2
[2017-12-15] MEDS ORDERED: OXYCODONE/APAP 7.5 MG/325 MG TABLET PO PRN (09:16)
[2017-12-15] MEDS: IBUPROFEN 800 MG TABLET PO PRN (09:39)
[2017-12-15] MEDS: NOZIN NASAL SWAB NAS SCH (09:40)
[2017-12-15] MEDS: DOCUSATE CALCIUM 240 MG CAPSULE PO SCH (11:01)
[2017-12-15] MEDS: IRON POLYSACCHARIDE COMPLEX 150 MG CAPSULE PO SCH (11:01)
== END 2017-12-15 10:45 | disposition home or self-care (01) | DRG 765 ==
LOC: MC 10:02
PROVIDERS: ADMIT Obstetrics & Gynecology; ATTEND Obstetrics & Gynecology